=== PATIENT | female | born 1970 | race African-American/Black ===

== ENCOUNTER 2018-09-04 06:57 | Outpatient (CLI) | payer BC ==
--- NOTE | 2018-09-04 07:55 | ULT ---
ABDOMINAL ULTRASOUND: HISTORY: Abdominal pain. FINDINGS: Real-time imaging of the upper abdomen shows a normal-appearing gallbladder. The common duct is 3-4 mm. Visualized liver parenchyma is normal. The spleen is 8.5 cm in length. Right and left kidneys are normal in size and not obstructed. The pancreas, abdominal aorta, and IVC regions are normal. IMPRESSION: Unremarkable abdomen ultrasound. POS: [facility]
--- NOTE | 2018-09-04 08:07 | ULT ---
PELVIC ULTRASOUND: HISTORY: Heavy menses. History of fibroids. FINDINGS: Real-time imaging of the pelvis was obtained transabdominally as well as with an endovaginal probe. This shows a uterus measuring 6 x 6.8 x 10.3 cm in size. Endometrium is in the 4 mm range. Multiple uterine fibroids are identified. The largest is approximately 4 cm in size. Right ovary is normal in appearance. The left ovary is very suboptimally visualized, but I do not se e any mass. DOPPLER EVALUATION WITH SPECTRAL ANALYSIS: Normal flow is shown to the adnexal regions. IMPRESSION: Enlarged fibromatous uterus. POS: [facility]
== END 2018-09-04 06:58 | disposition home or self-care (01) ==
LOC: BICULT 06:57
PROVIDERS: ATTEND Family Medicine
DX: Z12.31 Encounter for screening mammogram for malignant neoplasm of breast (principal); R10.84 Generalized abdominal pain; N64.89 Other specified disorders of breast; N85.2 Hypertrophy of uterus; Z80.3 Family history of malignant neoplasm of breast
CPT/HCPCS: 76700; 76856; 77063; 77067

== ENCOUNTER 2019-01-16 11:49 | Outpatient (CLI) | payer BC ==
[2019-01-16 15:10] LABS: Mean Corpuscular HGB CONC 31.6 g/dL (32.0-36.0); Mean Corpuscular Hemoglobin 25.5 pg (27.0-31.0); Mean Corpuscular Volume 80.7 fL (78.0-98.0); Platelet Count 329 thou/uL (130-400); RBC Distribution Width 14.3 % (11.5-14.5); Red Blood Cell (RBC) Count 4.73 mill/uL (4.20-5.40); White Blood Cell (WBC) Count 4.9 thou/uL (4.8-10.8)
== END 2019-01-16 11:50 | disposition home or self-care (01) ==
LOC: LABBT 11:49
PROVIDERS: ATTEND Obstetrics & Gynecology
DX: Z01.818 Encounter for other preprocedural examination (principal); D25.9 Leiomyoma of uterus, unspecified; R10.2 Pelvic and perineal pain; N92.0 Excessive and frequent menstruation with regular cycle
CPT/HCPCS: 85027; 86850; 86900; 86901; 93005; 93010

== ENCOUNTER 2019-01-16 12:00 | Inpatient (IN) | payer BC ==
--- NOTE | 2019-01-16 10:06 | HP ---
She is set for surgery on January 20, 2019. HISTORY OF PRESENT ILLNESS: Ms. Duvall is a 48-year-old female with history of sections x2, having symptomatic uterine fibroids. She has been having increasing lower abdominal discomfort and heavy menstrual periods over the past year or so. She has had a pelvic ultrasound showing numerous enlarged uterine fibroids and also noted to have on exam, then be in an approximately 14 to 16 week size. She is desiring definitive surgical therapy due to the worsening symptoms of the enlarged pelvic mass. PAST MEDICAL HISTORY: Otherwise significant for chronic hypertension and she is only on amlodipine 5 mg daily. She has also had an appendectomy in the past for surgical history. FAMILY HISTORY: Negative for any breast or ovarian cancer. CURRENT MEDICATIONS: 1. Vitamins. 2. Vitamin D. 3. vitamin with iron daily. 4. Also amlodipine 5 mg daily. SOCIAL HISTORY: She is . She is a nonsmoker. No excessive alcohol use. PHYSICAL EXAMINATION: VITAL SIGNS: Her weight is 134 pounds, height 4 feet 11 inches, and BMI 27. Blood pressure 130/82, pulse 87 and regular, and O2 saturations on room air is 99%. HEENT: Within normal limits. CHEST: Clear to auscultation. HEART: Regular rate and rhythm. S1 and S2 heart sounds. No murmurs, rubs, or gallops. ABDOMEN: Soft and nondistended with palpable mass. Probably 16-week size consistent with uterine myomas. PELVIC: Vulva and vagina had no lesions. Cervix had no lesions. She is up-to-date with normal Pap smear screening being in 2018. ASSESSMENT: This is a 48-year-old female with 16 weeks uterine fibroids symptomatic with menorrhagia and pelvic discomfort. PLAN: Plan is to proceed with robotic TLH with bilateral salpingectomy. We will use the ExCITE procedure for removal of the specimen and plan on ovarian preservation as long as the ovaries are normal. Job ID: [id number]
[2019-01-16 12:15] VITALS: BMI 27.0
[2019-01-20] MEDS ORDERED: Gabapentin 300 MG CAP ONE (06:14)
[2019-01-20] MEDS ORDERED: Famotidine/PF 20 mg/2ml Vial ONE (06:14)
[2019-01-20] MEDS ORDERED: CeleCOXIB 100 MG CAP ONE (06:15)
[2019-01-20] MEDS ORDERED: Fentanyl 250 MCG/5 ML VIAL ONE (06:17)
[2019-01-20] MEDS ORDERED: Midazolam HCl 2 mg/2 ml Vial ONE (06:17)
[2019-01-20] MEDS ORDERED: Bupivacaine HCl 0.5%/Epinephrine 1:200,000/PF 30 ml Vial ONE (06:55)
[2019-01-20] MEDS ORDERED: Lidocaine 2% Jelly 5 ML TUBE ONE (07:30)
[2019-01-20] MEDS ORDERED: Bisacodyl 10 MG SUPP PR PRN (09:56)
[2019-01-20] MEDS ORDERED: diphenhydrAMINE 25 MG CAP PO PRN (09:56)
[2019-01-20] MEDS ORDERED: Ondansetron PF 4 MG/2 ML Vial IVP PRN (09:56)
[2019-01-20] MEDS ORDERED: traMADol HCl 50 MG TAB PO PRN ×2 (09:56)
[2019-01-20] MEDS ORDERED: Zolpidem Tartrate 5 MG TAB PO PRN (09:56)
[2019-01-20] MEDS ORDERED: Simethicone Chewable 80 MG TAB PO PRN (09:56)
[2019-01-20] MEDS ORDERED: Promethazine HCl 25 MG/ML VIAL IM PRN ×2 (09:56→10:03)
[2019-01-20] MEDS ORDERED: Promethazine HCl 25 MG/ML VIAL SLOW IVP PRN (10:03)
[2019-01-20] MEDS ORDERED: Ondansetron HCl/PF 4 MG/2 ML Vial IVP PRN (10:03)
[2019-01-20] MEDS ORDERED: Fentanyl 100 MCG/2 ML VIAL ONE (10:50)
--- NOTE | 2019-01-20 12:43 | OP ---
DATE OF PROCEDURE: 01/20/2019 PREOPERATIVE DIAGNOSES: 1. A 48-year-old female, prior section x2 with symptomatic 16-week uterine fibroids. 2. Menorrhagia. 3. Pelvic pain. POSTOPERATIVE DIAGNOSES: 1. A 48-year-old female, prior section x2 with symptomatic 16-week uterine fibroids. 2. Menorrhagia. 3. Pelvic pain. PROCEDURES PERFORMED: Robotic total laparoscopic hysterectomy and bilateral salpingectomy with the ExCITE procedure for removal of the uterine specimen. 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 Ashleigh Lazcano DO. 2. Najma Hyman PA-C. ANESTHESIA: General endotracheal. ESTIMATED BLOOD LOSS: 50 mL. COMPLICATIONS: None. COUNTS: Correct x2. ANTIBIOTICS: 2 g Ancef, on-call to OR. PATHOLOGY: Uterus, cervix, and bilateral fallopian tubes. FINDINGS: 1. Uterus approximately 16-week size with numerous small intramural and subserosal uterine fibroids. 2. Normal-appearing bilateral fallopian tubes and ovaries. 3. The bladder was watertight to distention over 300 mL postprocedure. 4. Bilateral ureteral peristalsis visualized postprocedure. DISPOSITION: Recovery room, stable. DESCRIPTION OF PROCEDURE: The patient previously received informed consent in regard to surgery. She was taken back to the operating room, where she received a general anesthetic agent without complications. She was placed in dorsal lithotomy position with the use of Todd stirrups. She was prepped and draped in usual sterile fashion. A Carvajal catheter was placed at this time. A side-arm speculum was placed in the vagina. Uterus was grasped with single-tooth tenaculum. Uterus sounded to 10 cm. A size 10 cm LÓPEZ uterine manipulator with a 4.0 cm cervical cup was placed in usual fashion. Tenaculum and speculum were removed. Attention was then turned to the abdomen, where perspective trocar sites were infiltrated with 0.5% Marcaine with epinephrine. A 12 mm supraumbilical incision was made. Veress needle was entered into the abdominal cavity. The patient's pressures were noted to be less than 5 mmHg. Abdomen was insufflated with the patient's pressure of 15 approximately 4 L of carbon dioxide gas. A size 12 mm trocar was placed in the supraumbilical incision and the robotic laparoscope was introduced through the trocar sleeve confirming proper entry. Previously mentioned findings were noted. Bilateral lower quadrant 8 mm trocars were placed under laparoscopic guidance along with the right upper quadrant 11 mm trocar geriatric nurse assistant port. The patient was placed in Trendelenburg position. Robot was docked in usual fashion. I broke scrub and then proceeded to carry out the surgery from the operative console while my assistants remained at the bedside. I was draping some omental adhesions from the previous section in the anterior lower abdomen. These were taken down both sharply and bluntly with the bipolar fenestrated cautery and monopolar scissors with good hemostasis noted. This then allowed better visualization of the operative site. There was also some omental adhesions on the left lower uterine segment area. These were taken down sharply with monopolar scissors. This allowed for exposure of the left round ligament. This was bipolar fenestrated cauterized and then transected with monopolar scissors. This then allowed for the reflection of the vesicouterine peritoneal fold to be visualized and then this was dissected in a layering technique both sharply and bluntly dissecting the bladder atraumatically past the cervical vaginal margin, which was visualized through the indention of the cervical cup from the manipulator. The left uterine vessels again were skeletonized in this process. This then allowed for the filmy adhesion be displaced laterally toward the pelvic sidewall. Then, the left adnexal structures were visualized. The left fallopian tube was grasped by my geriatric nurse assistant, and then the mesosalpinx was cauterized with the bipolar fenestrated cautery and excised. The excision of tube was carried out with monopolar scissors and the left tube was removed from the right upper quadrant geriatric nurse assistant port. The left uterine ovarian ligament was then coagulated and transected with bipolar fenestrated cautery and discontinued. The broad ligament continued to be coagulated and transected, hugging close to the specimen back down to the region of the previous left round ligament was located. We then proceeded to carry out this similar fashion on the right side of the uterus, where again the right fallopian tube was grasped by my geriatric nurse assistant. The mesosalpinx cauterized with bipolar fenestrated cautery and the tube was excised with monopolar scissors and removed in the right upper quadrant port. The right utero-ovarian ligament was coagulated and transected. Serial coagulation of the broad ligament hugging close to the specimen was carried out in a similar fashion. The right round ligament was reached. It was coagulated and transected. The anterior leaf of the broad ligament was entered and completion of the vesicouterine peritoneal incision was made, again dissecting the bladder in a layering technique past the cervical vaginal angle. The right uterine vessels again were skeletonized and coagulated in the internal cervical os region. Bilateral ureteral peristalsis was noted throughout and then the dissection sites were medial and superior to the location of the each ureter. The colpotomy was then created starting at the posterior at 3 o'clock and 6 to 9 o'clock position and on the way to the uterus required posteriorly fell down exposing the anterior cervix region and the vaginal tissue was then incised with the monopolar scissors from 12 to 3 and 12 to 9 o'clock delivering the specimen. The uterine manipulator was then removed from the cervix leaving the specimen in the pelvis. Bipolar fenestrated cautery was then utilized to coagulate any areas of oozing from the vaginal cuff sites in the uterine vessels, after the monopolar scissor had been switched for a Hernán needle security patrol driver. My geriatric nurse assistant then brought in a STRATAFIX suture and the vaginal cuff was closed in full-thickness closure starting on the right angle back towards the midline to the left angle and back towards the midline, securing hemostasis and good closure of the vaginal cuff. The pelvis again was inspected and the pelvic sidewalls were hemostatic. Bilateral ureteral peristalsis was visualized. The bladder was distended and noted to be watertight over 300 mL of fluid distention. We then removed the specimen out of the pelvis and then the previously prepared Aces medium-sized bag that had been folded in Accordion technique and tied with suture, which had been placed when the small GelPOINT system had been placed in the umbilicus incision. This had been done prior to the docking of the robot. The bag was then brought into the pelvis. We lined this up with arose pointing upward and then when we had the bag in the proper position, my geriatric nurse assistant brought in the Endo Jacqueline scissors and then cut the stay tie sutures unfolding the bag. We then brought the specimen into the bag and it was secured. The previously tied loop on the opposite corner of the rim of the opposite rim of the stay suture in the endobag was then grasped and the stay suture of the Aces bag was then brought through the loop closing the bag with the specimen in-situ. My geriatric nurse assistant then grabbed the drawstring from the Aces bag loop and then brought it through the GelPOINT and out to the surface. I then broke scrub and the Aces system was removed and we pulled the Aces bag with the specimen in-situ up through an umbilical fascial defect, which was 2.5 cm in size. Then, we replaced the small Aces retractor inside the Aces bag to protect the bag from the morcellation process. The specimen was grabbed with the cervix with Cristóbal thyroid clamps and then with the C cutting technique, the specimen was removed in a morcellation technique. Once all the specimen was removed from the bag, the Aces bag was then pulled through, it was intact. The Aces retractor was also removed. The fascial defect in the supraumbilical area was closed with 0 Vicryl suture in a running continuous fashion. The remainder of the trocar sites were closed with 4-0 Monocryl subcuticular and the skin was then applied with Dermabond. The vaginal vault was checked and was noted to be hemostatic with a sponge stick. The patient awakened from anesthesia and transferred to recovery room in stable condition. Job ID: [id number]
[2019-01-20] MEDS: Ketorolac Tromethamine 30 MG/ML VIAL IVP SCH ×2 (12:45→18:23)
[2019-01-20] MEDS: Sodium Chloride 0.9% 1,000 ML IV SCH ×2 (12:46→21:15)
[2019-01-20] MEDS: Acetaminophen 1,000 MG in Premix Bag 1 BAG IVPB SCH ×2 (12:47→18:23)
[2019-01-20] MEDS: Morphine 4 MG/ML VIAL SLOW IVP PRN ×2 (14:57→21:35)
[2019-01-20] MEDS ORDERED: Ondansetron PF 4 MG/2 ML Vial ONE (16:12)
[2019-01-20] MEDS ORDERED: PROPOFOL 200 MG/20 ML VIAL ONE (16:12)
[2019-01-20] MEDS ORDERED: Glycopyrrolate 0.2 MG/ML 5 ML SYRINGE ONE (16:12)
[2019-01-20] MEDS ORDERED: Rocuronium Bromide 10 MG/ML (10ML VIAL) ONE (16:12)
[2019-01-20] MEDS ORDERED: Dexamethasone 20 MG/5 ML VIAL ONE (16:12)
[2019-01-20] MEDS ORDERED: Lidocaine 1% PF 5 ML VIAL ONE (16:12)
[2019-01-20] MEDS ORDERED: Phenylephrine HCL 10 MG/ML VIAL ONE (16:12)
[2019-01-20] MEDS ORDERED: Morphine 4 MG/ML VIAL SLOW IVP PRN (18:49)
[2019-01-20] MEDS ORDERED: Amlodipine 5 MG TAB PO SCH (21:00)
[2019-01-20] MEDS ORDERED: tiZANidine HCl 4 MG TAB PO SCH (21:00)
[2019-01-21] MEDS: Ketorolac Tromethamine 30 MG/ML VIAL IVP SCH ×2 (02:08→09:25)
[2019-01-21] MEDS: Sodium Chloride 0.9% 1,000 ML IV SCH ×2 (05:35→10:16)
[2019-01-21 08:39] LABS: Hemoglobin 10.8 g/dL (12.0-16.0); Mean Corpuscular HGB CONC 31.9 g/dL (32.0-36.0); Mean Corpuscular Hemoglobin 25.7 pg (27.0-31.0); Mean Corpuscular Volume 80.4 fL (78.0-98.0); Mean Platelet Volume 7.6 fL (7.4-10.4); Platelet Count 225 thou/uL (130-400); RBC Distribution Width 14.4 % (11.5-14.5); Red Blood Cell (RBC) Count 4.21 mill/uL (4.20-5.40); White Blood Cell (WBC) Count 8.9 thou/uL (4.8-10.8)
[2019-01-21] MEDS ORDERED: Multivit, Therapeutic 1 TAB PO SCH (09:00)
[2019-01-21] MEDS ORDERED: Vitamin E 400 UNITS CAP PO SCH (09:00)
[2019-01-21 14:01] VITALS: BP 130/69; TEMP 99.2
--- NOTE | 2019-01-21 18:38 | DIS ---
DATE OF ADMISSION: 01/20/2019 DATE OF DISCHARGE: 01/21/2019 DIAGNOSES: Symptomatic uterine fibroids with menorrhagia, pelvic pain, and also adenomyosis. PROCEDURES PERFORMED: Robotic total laparoscopic hysterectomy with bilateral salpingectomy and ExCITE procedure. SUMMARY OF HOSPITAL COURSE: Ms. Duvall is a 48-year-old female with prior section x2 and had 16 week symptomatic uterine fibroids. She underwent uncomplicated robotic total laparoscopic hysterectomy and bilateral salpingectomy with removal of the uterine specimen through the ExCITE procedure. Postoperatively, she did well. Her vital signs remained stable and she was ambulating and voiding on the evening of postop day #0. Her postoperative hematocrit on postop day #1 was 33.9%. Vital signs were stable and she was then tolerating a regular diet and voiding without difficulty. She was discharged home with Damon 5 mg-325 mg one p.o. q.4 to 6 hours p.r.n. pain, [id number] ibuprofen as directed and has a followup in 2 and 6 weeks postoperatively. Job ID: [id number]
[2019-01-25] MEDS ORDERED: Ibuprofen 800 MG TAB PO SCH (21:00)
== END 2019-01-21 16:50 | disposition home or self-care (01) | DRG 743 ==
LOC: SURG A 01-20 06:04 → 3SW 01-20 12:23
PROVIDERS: ADMIT Obstetrics & Gynecology; ATTEND Obstetrics & Gynecology
PROC: 0UT94ZZ Resection of Uterus, Percutaneous Endoscopic Approach (ICD-10-PCS; principal; 2019-01-20)
PROC: 0UT74ZZ Resection of Bilateral Fallopian Tubes, Percutaneous Endoscopic Approach (ICD-10-PCS; 2019-01-20)
PROC: 0UT24ZZ Resection of Bilateral Ovaries, Percutaneous Endoscopic Approach (ICD-10-PCS; 2019-01-20)
DX: D25.1 Intramural leiomyoma of uterus (principal); D25.2 Subserosal leiomyoma of uterus; N80.0 Endometriosis of uterus; I10 Essential (primary) hypertension; Z79.899 Other long term (current) drug therapy; Z90.49 Acquired absence of other specified parts of digestive tract
CPT/HCPCS: 36415; 85027; 86850; 86900; 86901; 88307; J0131; J0670; J0690; J1100; J1885; J2001; J2250; J2270; J2370; J2405; J2704; J3010; S0028

== ENCOUNTER 2019-10-27 07:54 | Outpatient (CLI) | payer BC ==
--- NOTE | 2019-10-27 09:43 | MMO ---
Bilateral MAMMO Bilat Screen [facility]. CLINICAL HISTORY: Patient is 48 years old and is seen for screening. The patient has no family history of breast cancer. The patient has no personal history of cancer. VIEWS: The views performed were: bilateral craniocaudal with tomosynthesis and bilateral mediolateral oblique with tomosynthesis. FILMS COMPARED: The present examination has been compared to prior imaging studies performed at [facility] on 08/10/2010, 03/05/2012, 02/19/2017 and 09/04/2018. This study has been interpreted with the assistance of computer-aided detection. MAMMOGRAM FINDINGS: There are scattered fibroglandular densities. There are no suspicious masses, suspicious calcifications, or new areas of architectural distortion. IMPRESSION: THERE IS NO MAMMOGRAPHIC EVIDENCE OF MALIGNANCY. A ROUTINE FOLLOW-UP MAMMOGRAM IN 1 YEAR IS RECOMMENDED. THE RESULTS OF THIS EXAM WERE SENT TO THE PATIENT. ACR BI-RADS Category 1 - Negative MAMMOGRAPHY NOTE: 1. A negative mammogram report should not delay a biopsy if a dominant of clinically suspicious mass is present. 2. Approximately 10% to 15% of breast cancers are not detected by mammography. 3. Adenosis and dense breasts may obscure an underlying neoplasm. Reported by: MELQUIADES MCCORMACK MD Electonically Signed: [id number]
== END 2019-10-27 07:55 | disposition home or self-care (01) ==
LOC: BICMAMMO 07:54
PROVIDERS: ATTEND Family Medicine
DX: Z12.31 Encounter for screening mammogram for malignant neoplasm of breast (principal)
CPT/HCPCS: 77063; 77067

== ENCOUNTER 2020-05-19 13:27 | Outpatient (CLI) | payer BC ==
--- NOTE | 2020-05-19 14:02 | RAD ---
EXAM: Single view of the pelvis and 2 views of the bilateral hips HISTORY: Right hip pain and iliac crest pain bilaterally COMPARISON: None FINDINGS: There is no evidence of acute fracture or dislocation. No degenerative changes are seen. No soft tissue swelling is seen. IMPRESSION: Unremarkable exam.
--- NOTE | 2020-05-19 14:30 | RAD ---
Exam: 2 views lumbar spine HISTORY: Low back pain. Pain radiates to both legs FINDINGS: 5 lumbar type vertebra. Lumbar spine vertebral body heights are maintained. No fracture. No spondylolisthesis or spondylolysis. Visualized sacrum and bony pelvis are intact. Minimal osteophyte formation at L3-L4. IMPRESSION: No significant loss of disc space height. Minimal osteophyte formation at L3-L4.
== END 2020-05-19 13:28 | disposition home or self-care (01) ==
LOC: BICRAD 13:27
PROVIDERS: ATTEND Internal Medicine Rheumatology
DX: M25.551 Pain in right hip (principal); M54.5 Low back pain; M25.78 Osteophyte, vertebrae
CPT/HCPCS: 72100; 73523

== ENCOUNTER 2022-12-29 12:02 | Outpatient (CLI) | payer BC | END 2022-12-29 12:03 | disposition home or self-care (01) | LOC: BICMAMMO 12:02 | PROVIDERS: ATTEND Family Medicine | DX: Z12.31 Encounter for screening mammogram for malignant neoplasm of breast (principal); Z80.3 Family history of malignant neoplasm of breast | CPT/HCPCS: 77063; 77067 ==

== ENCOUNTER 2023-12-31 08:11 | Outpatient (CLI) | payer BC | END 2023-12-31 08:12 | disposition home or self-care (01) | LOC: BICMAMMO 08:11 | PROVIDERS: ATTEND Family Medicine | DX: Z12.31 Encounter for screening mammogram for malignant neoplasm of breast (principal); Z80.3 Family history of malignant neoplasm of breast | CPT/HCPCS: 77063; 77067 ==